=== PATIENT | male | born 2000 | race Caucasian/White ===

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

== ENCOUNTER 2019-12-22 18:11 | Emergency (ER) | payer BC ==
[~2019-12-22] VITALS: Ht 195.6 cm; Wt 86.4 kg
[2019-12-22 19:36] VITALS: BP 132/81; PULSE 62; TEMP 98.2
== END 2019-12-22 19:37 | disposition home or self-care (01) ==
LOC: COL.ER 18:11
DX: S09.90XA Unspecified injury of head, initial encounter (principal); S01.01XA Laceration without foreign body of scalp, initial encounter; Z23 Encounter for immunization; Z90.89 Acquired absence of other organs; W01.198A Fall on same level from slipping, tripping and stumbling with subsequent striking against other object, initial encounter; Y92.480 Sidewalk as the place of occurrence of the external cause

== ENCOUNTER → 2019-12-29 | Outpatient (CLI) | payer BC ==
[2019-12-29 17:01] VITALS: BP 127/76; PULSE 64; TEMP 98.8
== END ==
LOC: COL.ER 16:51
DX: Z48.02 Encounter for removal of sutures (principal)